=== PATIENT | male | born 1980 | race American Indian/Alaskan Native ===

== ENCOUNTER 2017-04-01 09:18 | Emergency (ER) | payer SELFPAY ==
[2017-04-01 09:29] VITALS: BP 121/84
--- NOTE | 2017-04-01 11:03 | Emergency Department Report ---
ED Headache HPI - General Chief Complaint: Headache Stated Complaint: HEADACHE Time Seen by Provider: 04/01/17 11:01 Source: patient Exam Limitations: no limitations - History of Present Illness Initial Comments: Patient here reports that he has headache pain for 3 days. He said he had no episode of headache in the past and he's been taking [id number] medication without any relief. Denies any nausea or vomiting. Patient said he may need eye exam. Concerned about being on blood pressure medication because his blood pressure may be high and he is a septic pump truck driver. Patient blood pressure in triage is 121/84. Pain is 6 out of 10 to a friend of his head and achy. Denies any fever or chills. Denies any neck pain or stiffness. Denies any nasal congestion or runny nose. Denies any cough. Timing/Duration: waxing and waning, other (3 days) Quality: moderate, achy Head Injury Location: frontal Recent Head Trauma: no recent headache/trauma Associated Symptoms: denies: confusion, fatigue, facial pain, fever/chills, flushing, loss of consciousness, nausea/vomiting, nasal congestion, nasal drainage, numbness in legs/feet, rash, seizures, sinus infection, stiff neck, vision changes, weakness Allergies/Adverse Reactions: Allergies No Known Allergies Allergy (Verified 04/14/15 06:02) Home Medications: Ambulatory Orders Ibuprofen [Motrin] 600 mg PO Q8H PRN #12 tablet 04/01/17 ED Review of Systems ROS: Stated complaint: HEADACHE Other details as noted in HPI Comment: All other systems reviewed and negative Constitutional: denies: chills, fever Eyes: denies: vision change ENT: denies: ear pain, throat pain, epistaxis, congestion Respiratory: no symptoms reported Cardiovascular: denies: chest pain, palpitations, edema, syncope Gastrointestinal: denies: abdominal pain, nausea, vomiting, hematochezia Musculoskeletal: denies: back pain, joint swelling, arthralgia, myalgia Skin: denies: rash Neurological: headache. denies: weakness, numbness, paresthesias, confusion, abnormal gait, vertigo ED Past Medical Hx - Past Medical History Previous Medical History?: No - Surgical History Past Surgical History?: No - Family History Family history: no significant - Social History Smoking Status: Never Smoker Substance Use Type: None, Non Opiate Pain - Medications Home Medications: Home Medications Medication Instructions Recorded Confirmed Last Taken Type Ibuprofen [Motrin] 600 mg PO Q8H PRN #12 tablet 04/01/17 Unknown Rx ED Physical Exam - General Limitations: No Limitations General appearance: alert, in no apparent distress - Head Head exam: Present: atraumatic, normocephalic, normal inspection - Expanded Head Exam Expanded Head exam: Absent: laceration, abrasion, contusion, hematoma, racoon eyes, arrington's sign, general tenderness, tenderness of temporal artery, CSF rhinorrhea , CSF otorrhea - Eye Eye exam: Present: normal appearance, PERRL, EOMI. Absent: nystagmus, periorbital swelling Pupils: Present: normal accommodation - ENT ENT exam: Present: normal exam, normal orophraynx, mucous membranes moist, TM's normal bilaterally, normal external ear exam - Neck Neck exam: Present: normal inspection, full ROM. Absent: tenderness, meningismus, lymphadenopathy - Respiratory Respiratory exam: Present: normal lung sounds bilaterally. Absent: respiratory distress, chest wall tenderness - Cardiovascular Cardiovascular Exam: Present: regular rate, normal rhythm, normal heart sounds - GI/Abdominal GI/Abdominal exam: Present: soft, normal bowel sounds. Absent: distended, tenderness, guarding, rebound, rigid - Extremities Exam Extremities exam: Present: normal inspection, full ROM, normal capillary refill. Absent: tenderness, pedal edema, joint swelling, calf tenderness - Back Exam Back exam: Present: normal inspection, full ROM. Absent: tenderness, CVA tenderness (R), CVA tenderness (L), muscle spasm, paraspinal tenderness, vertebral tenderness, rash noted - Neurological Exam Neurological exam: Present: alert, oriented X3, normal gait, reflexes normal. Absent: motor sensory deficit - Psychiatric Psychiatric exam: Present: normal affect, normal mood - Skin Skin exam: Present: warm, dry, intact, normal color. Absent: rash ED Course Vital Signs 04/01/17 09:25 Temperature 97.3 F L Pulse Rate 72 Respiratory 18 Rate Blood Pressure 121/84 O2 Sat by Pulse 100 Oximetry - Reevaluation(s) Reevaluation #1: 04/01/17 12:41 GENERAL: [] LUNGS: [] HEART: [] ABDOMEN: [] NEUROLOGICAL: [] PSYCH: []. 04/01/17 12:48 ED Medical Decision Making - Radiology Data Radiology results: report reviewed CT scan of the head revealed no acute findings - Medical Decision Making ED course: Patient here complaining of headache that is 6 out of 10. Received Decadron 10 mg,Reglen 10 mg and Toradol 60 mg emergency room which relieved his headache. 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 I discussed with him that his blood pressure stable and he needs to schedule an appointment for ophthalmology for vision check. I Discussed with him that CAT scan of the head was negative for any acute findings. Patient was understanding and and discharged home with prescription for Motrin and to follow-up with his primary care physician if he does not have when he needs to follow up at [facility] an platform engineer. Critical care attestation.: If time is entered above; I have spent that time in minutes in the direct care of this critically ill patient, excluding procedure time. ED Disposition Clinical Impression: Headache Qualifiers: Headache type: unspecified Headache chronicity pattern: acute headache Intractability: not intractable Qualified Code(s): R51 - Headache Disposition: DC-01 TO HOME OR SELFCARE Is pt being admited?: No Does the pt Need Aspirin: No Condition: Stable Instructions: Acute Headache (ED) Additional Instructions: Please follow up with platform engineer referred to urinary discharge instruction paperwork Please follow up at [facility] for well check Take Motrin as prescribed for headache Prescriptions: Ibuprofen [Motrin] 600 mg PO Q8H PRN #12 tablet PRN Reason: Pain Referrals: AARON RICARDO MD [Staff Physician] - 2-3 Days [facility] [Outside] - 2-3 Days Forms: Work/School Release Form(ED)
--- NOTE | 2017-04-01 11:49 | Cat Scan Report ---
CT HEAD WITHOUT CONTRAST: HISTORY: Headache. Serial contiguous axial images were obtained through the cranium. Intravenous contrast material was not administered. The ventricles are normal in size and appearance. There is no mass effect or midline shift. No areas of abnormally increased or decreased attenuation are seen. No mass lesion is seen. The mastoid air cells and visualized portions of the sinuses are normal. IMPRESSION: Cranial CT scan within normal limits.
[2017-04-01] MEDS ORDERED: DECADRON IM ONE (12:37)
[2017-04-01] MEDS ORDERED: REGLAN IM ONE (12:37)
[2017-04-01] MEDS ORDERED: TORADOL IM ONE (12:37)
== END 2017-04-01 12:56 | disposition home or self-care (01) ==
LOC: ED 09:18
DX: R51 Headache (principal)
CPT/HCPCS: 70450; 96372; 99283; J1100; J1885; J2765